=== PATIENT | female | born 1970 | race Caucasian/White ===

== ENCOUNTER 2019-04-22 09:22 | Day surgery (SDC) | payer OTHER ==
[~2019-04-22] VITALS: Ht 162.6 cm; Wt 55.6 kg
[2019-04-22] MEDS ORDERED: Budeprion Xl300 MG PO (10:36)
[2019-04-22] MEDS ORDERED: TRAZ150T57 (10:37)
[2019-04-22] MEDS ORDERED: ALPR.5 PO (10:37)
--- NOTE | 2019-04-22 10:39 | NUR ---
04/22/19 1039 Vane Wells 1ST IV ATTEMPT IN RH INFILTRATED, STARTED BY CHRIS MEYER 2ND IV ATTEMPT IN RAC SUCCESSFUL, 20 G PLACED, STARTED BY CHRIS MEYER
== END 2019-04-22 11:48 | disposition home or self-care (01) ==
LOC: ORSCSDS 09:22
PROVIDERS: Surgery
PROC: 0DJD8ZZ Inspection of Lower Intestinal Tract, Via Natural or Artificial Opening Endoscopic (ICD-10-PCS; principal; 2019-04-22 10:45)
PROC: 0DJ08ZZ Inspection of Upper Intestinal Tract, Via Natural or Artificial Opening Endoscopic (ICD-10-PCS; principal; 2019-04-22 10:45)
DX: R19.4 Change in bowel habit (principal); R10.13 Epigastric pain; R14.0 Abdominal distension (gaseous); R11.2 Nausea with vomiting, unspecified; F43.10 Post-traumatic stress disorder, unspecified; Z86.010 Personal history of colon polyps; Z79.899 Other long term (current) drug therapy
CPT/HCPCS: J2704; J7120